=== PATIENT | female | born 1995 | race Two or more races ===

== ENCOUNTER → 2019-12-02 | Emergency (ER) | payer OTHER ==
[~2019-12-02] VITALS: Ht 162.6 cm; Wt 104.3 kg
[~2019-12-02] MED LIST: MAGNESIUM CITRATE SOLUTION 300 ML BTL ONE; MAGNESIUM CITRATE SOLUTION 300 ML BTL PO ONE
[2019-12-02 22:04] VITALS: BP 113/83
== END | disposition home or self-care (01) ==
LOC: ER 20:12
DX: K59.00 Constipation, unspecified (principal); K62.89 Other specified diseases of anus and rectum
CPT/HCPCS: 36415; 74176; 84702